=== PATIENT | female | born 1960 | race Caucasian/White ===

== ENCOUNTER → 2017-05-26 | Outpatient (CLI) | payer OTHER | LOC: LAB 16:00 | DX: N39.0 Urinary tract infection, site not specified (principal) | CPT/HCPCS: 87086 ==

== ENCOUNTER → 2017-06-18 | Outpatient (CLI) | payer OTHER ==
[2017-06-20 03:12] LABS: Source Vaginal/Cervical
== END ==
LOC: LAB SHORT 16:45 → LAB 16:45
PROVIDERS: Nurse Practitioner Family
DX: Z01.419 Encounter for gynecological examination (general) (routine) without abnormal findings (principal)
CPT/HCPCS: G0145

== ENCOUNTER → 2017-12-17 | Outpatient (CLI) | payer OTHER | LOC: LAB EV 08:50 → LAB SHORT 08:50 | DX: N39.0 Urinary tract infection, site not specified (principal) | CPT/HCPCS: 87077; 87086; 87186 ==

== ENCOUNTER → 2019-05-23 | Outpatient (CLI) | payer OTHER | LOC: LAB SHORT 16:57 → LAB EV 16:57 | DX: R35.0 Frequency of micturition (principal) | CPT/HCPCS: 87086 ==